=== PATIENT | male | born 2000 | race Hispanic/Latino ===

== ENCOUNTER 2022-06-09 21:21 | Emergency (ER) | payer OTHER ==
[~2022-06-09 21:21] MED LIST: Iopamidol 300 61% 100 ML VIAL FS ONE
[2022-06-09] MEDS ORDERED: Ondansetron PF 4 MG/2 ML Vial ONE (21:49)
[2022-06-09] MEDS ORDERED: Ketorolac Tromethamine 30 MG/ML VIAL ONE (23:59)
[2022-06-10] MEDS ORDERED: Ondansetron ODT 4 MG TAB ONE (00:43)
== END 2022-06-10 00:10 | disposition home or self-care (01) ==
LOC: CSHERS 21:21
DX: S06.0X9A Concussion with loss of consciousness of unspecified duration, initial encounter (principal); S22.32XA Fracture of one rib, left side, initial encounter for closed fracture; S22.31XA Fracture of one rib, right side, initial encounter for closed fracture; S22.039A Unspecified fracture of third thoracic vertebra, initial encounter for closed fracture; Z20.822 Contact with and (suspected) exposure to COVID-19; V49.9XXA Car occupant (driver) (passenger) injured in unspecified traffic accident, initial encounter
CPT/HCPCS: 70450; 71260; 72125; 74177; 96374; 96375; G0390; J1885; J2405; Q0162; Q9967; U0003; U0005

== ENCOUNTER 2022-07-16 16:42 | Outpatient (CLI) | payer BC | END 2022-07-16 16:43 | disposition home or self-care (01) | LOC: CSHRAD 16:42 | PROVIDERS: ATTEND Neurological Surgery | DX: M54.6 Pain in thoracic spine (principal); S22.030D Wedge compression fracture of third thoracic vertebra, subsequent encounter for fracture with routine healing | CPT/HCPCS: 72072 ==